=== PATIENT | male | born 1955 | race Caucasian/White ===

== ENCOUNTER 2023-01-24 12:04 | Outpatient (CLI) | payer MEDICARE, BC, SELFPAY ==
--- NOTE | 2023-01-24 11:15 | DI.RAD_ITS ---
Exam(s) XR KNEE RT 3V AP,LAT,MIMI EXAM: XR KNEE RT 3V AP,LAT,MIMI CLINICAL HISTORY: knee pain. TECHNIQUE: 2D digital imaging was performed of the right knee. Three views obtained. AP, lateral an d PA tunnel views were obtained. COMPARISON: None. FINDINGS: BONES: No acute fracture is present. No bony destructive lesion is seen. There is a small enthesophyt e at the superior patella. JOINTS: The knee is normally aligned. No joint effusion is seen. There is mild narrowing of the media l femoral tibial joint. SOFT TISSUE: Normal. IMPRESSION: Mild joint space narrowing. DATA REPOSITORY: RADIATION DOSE DELIVERED:
--- NOTE | 2023-01-24 11:15 | DI.RAD_ITS ---
Exam(s) XR HIP PELVIS ADULT BL EXAM: XR HIP PELVIS ADULT BL CLINICAL HISTORY: hip pain. TECHNIQUE: 2D digital imaging was performed of the pelvis and bilateral hips. Three images were obt ained. AP pelvis and lateral views of both hips were obtained. COMPARISON: No exams were available for comparison FINDINGS: BONES: No acute fracture is present. No bony destructive lesion is seen. JOINTS: No dislocation present. There is mild joint space narrowing and acetabular spurring of the hi ps bilaterally. SOFT TISSUE: Normal. Clips are seen inferior to the pelvis which may represent a prior vasectomy. IMPRESSION: Mild degenerative changes of the hips bilaterally. DATA REPOSITORY: RADIATION DOSE DELIVERED:
--- NOTE | 2023-01-24 11:15 | DI.RAD_ITS ---
Exam(s) XR KNEE LT 3V AP,LAT,MIMI EXAM: XR KNEE LT 3V AP,LAT,MIMI CLINICAL HISTORY: knee pain. TECHNIQUE: 2D digital imaging was performed of the left knee. Three images were obtained. AP, late ral and PA tunnel views were obtained. COMPARISON: CR XR KNEE LEFT 4 OR MORE VIEWS from 09/25/2021 FINDINGS: BONES: No acute fracture is present. No bony destructive lesion is seen. JOINTS: The knee is normally aligned. There is a small joint effusion. Mild periarticular spurring s een at the posterior patella and the lateral femoral tibial joint. There is mild narrowing of the me dial femoral tibial joint. SOFT TISSUE: Normal. IMPRESSION: Osteoarthritis of the knee. DATA REPOSITORY: RADIATION DOSE DELIVERED:
== END 2023-01-24 12:05 | disposition home or self-care (01) ==
LOC: DIORS 12:04
PROVIDERS: Visit Provider Physician Assistant
DX: M17.12 Unilateral primary osteoarthritis, left knee (principal); M17.11 Unilateral primary osteoarthritis, right knee; M70.61 Trochanteric bursitis, right hip; M70.62 Trochanteric bursitis, left hip
CPT/HCPCS: 20610; 73521; 73562; 99203; J1040

== ENCOUNTER → 2023-07-15 08:47 | Outpatient (BNVA) | payer MEDICARE, BC, SELFPAY | PROVIDERS: Visit Provider Student in an Organized Health Care Education/Training Program | DX: M70.61 Trochanteric bursitis, right hip (principal); M70.62 Trochanteric bursitis, left hip; M17.12 Unilateral primary osteoarthritis, left knee | CPT/HCPCS: 20610; J1040 ==

== ENCOUNTER → 2023-11-24 14:17 | Outpatient (BNVA) | payer MEDICARE, BC, SELFPAY | PROVIDERS: Visit Provider Student in an Organized Health Care Education/Training Program | DX: M16.11 Unilateral primary osteoarthritis, right hip (principal) | CPT/HCPCS: 20611; J1040 ==

== ENCOUNTER → 2024-01-16 14:14 | Outpatient (BNVA) | payer MEDICARE, BC, SELFPAY | PROVIDERS: Visit Provider Student in an Organized Health Care Education/Training Program | DX: M16.11 Unilateral primary osteoarthritis, right hip (principal) | CPT/HCPCS: 99213 ==

== ENCOUNTER 2024-03-23 01:43 | Outpatient (CLI) | payer MEDICARE, BC, SELFPAY ==
[2024-03-23 09:20] LABS: HCT 42.6 % (40.0-50.0); HGB 13.8 g/dL (13.5-17.5); MCH 29.9 pg (27.0-33.0); MCHC 32.4 % (32.0-36.0); MCV 92 fL (80-95); MPV 10.7 fL (8.0-11.0); Platelet Count 269 10^3/uL (130-400); RBC 4.62 10^6/uL (4.36-5.78); RDW 12.8 % (11.8-14.1); RDW-SD 42.9 fL; WBC 8.35 10^3/uL (4.4-10.8)
[2024-03-23 09:39] LABS: BUN 15 mg/dL (7-18); CREATININE 0.9 mg/dL (0.70-1.30); Calcium 9.5 mg/dL (8.5-10.1); Chloride 105 mmol/L (98-107); Estimated GFR 92.45 (mL/min/1.73m2); Glucose 119 mg/dL (74-106); Potassium 4.2 mmol/L (3.5-5.1); Sodium 141 mmol/L (136-145)
== END 2024-03-23 01:44 | disposition home or self-care (01) ==
LOC: LBO 01:43
PROVIDERS: Visit Provider Student in an Organized Health Care Education/Training Program
DX: M16.11 Unilateral primary osteoarthritis, right hip (principal); Z01.812 Encounter for preprocedural laboratory examination
CPT/HCPCS: 36415; 80048; 85027; 72170

== ENCOUNTER 2024-03-23 08:28 | Outpatient (CLI) | payer MEDICARE, BC, SELFPAY ==
--- NOTE | 2024-03-23 07:45 | DI.RAD_ITS ---
Exam(s) XR PELVIS AP EXAM: XR PELVIS AP CLINICAL HISTORY: R THR Planning. TECHNIQUE: 2D digital imaging was performed.One images were obtained. COMPARISON: CR XR HIP PELVIS ADULT BL from 01/24/2023 FINDINGS: BONES: No acute fracture is present. No bony destructive lesion is seen. JOINTS: No dislocation present. There is again seen mild narrowing of the hip joints bilaterally. Th e hips are otherwise well maintained. The visualized sacroiliac joints and symphysis pubis are unrem arkable. SOFT TISSUE: Clips are seen inferior to the pelvis which may reflect prior vasectomy. IMPRESSION: Stable mild joint space narrowing of the hips. DATA REPOSITORY: RADIATION DOSE DELIVERED:
== END 2024-03-23 08:29 | disposition home or self-care (01) ==
LOC: DIORS 08:28
PROVIDERS: Visit Provider Physician Assistant
DX: M16.11 Unilateral primary osteoarthritis, right hip (principal); Z01.818 Encounter for other preprocedural examination
CPT/HCPCS: 72170

== ENCOUNTER 2024-04-04 06:21 | Day surgery (SDC) | payer MEDICARE, BC, SELFPAY ==
[2024-04-04] VITALS (8 sets, daily range): BP systolic 92–131; BP diastolic 50–76; PULSE 53–64; RESP 14–23; TEMP 36.3–36.7; O2SAT 94–99; BMI 34.0
[2024-04-04] MEDS: Acetaminophen 500 MG TAB 1000 MG PO (06:18)
[2024-04-04] MEDS: Celecoxib 200 MG CAP 400 MG PO (06:19)
[2024-04-04] MEDS: Lactated Ringers 1,000 ML 80 ML IV (06:28)
--- NOTE | 2024-04-04 06:56 | W.ANESPRE ---
General Info Date of Service Date Performed: 04/04/24 Height: 5 ft 11.5 in Weight: 112.037 kg Body Mass Index (BMI): 34.0 Surgical Procedure: Operation Date: 04/04/24 07:50 Proposed Procedure Side Surgeon p Hip Total Hip Anterior, ACTIS Right Ervin Perez MD Meds Allergies and Home Medications Allergies Allergy/AdvReac Type Severity Reaction Status Date / Time No Known Allergies Allergy Verified 04/04/24 06:02 Home Medication Medication Instructions Recorded albuterol sulfate 90 mcg/actuation 2 puff inhalation Q6H PRN 01/26/23 aerosol inhaler losartan 100 mg tablet 100 mg PO DAILY 01/26/23 metoprolol succinate 50 mg 50 mg PO DAILY 01/26/23 tablet,extended release 24 hr montelukast 10 mg tablet 10 mg PO DAILY 01/26/23 (Singulair) simvastatin 40 mg tablet 40 mg PO DAILY 01/26/23 apixaban 5 mg tablet (Eliquis) 5 mg PO BID 11/24/23 cholecalciferol (vitamin D3) 25 25 mcg PO DAILY 11/24/23 mcg (1,000 unit) capsule potassium, magnesium packet PO 11/24/23 citrate-sodium bicarb 10 mEq oral powder packet (LithoLyte) acetaminophen 500 mg tablet 1,000 mg (2 x 500 mg) PO TID #90 04/04/24 tabs celecoxib 200 mg capsule 200 mg PO BID #60 caps 04/04/24 dexamethasone 4 mg tablet 4 mg PO DAILY #2 tabs 04/04/24 oxycodone 5 mg tablet 5 mg PO Q4H PRN pain #20 tabs 04/04/24 pantoprazole 40 mg tablet,delayed 40 mg PO DAILY #30 tabs 04/04/24 release Current Visit Medications: Current Medications Generic Name Dose Route Start Last Admin Trade Name Freq PRN Reason Stop Dose Admin Acetaminophen 1,000 mg 04/04/24 06:00 04/04/24 06:18 Acetaminophen 500 Mg Tab PO 04/04/24 23:59 1,000 mg PREOP LELO Administration Celecoxib 400 mg 04/04/24 06:00 04/04/24 06:19 Celecoxib 200 Mg Cap PO 04/04/24 23:59 400 mg PREOP LELO Administration Ringer's Solution 1,000 mls @ 80 mls/hr 04/04/24 06:00 04/04/24 06:28 IV 04/04/24 23:59 80 mls/hr INFUSION LELO Administration Cefazolin Sodium/Dextrose 2 gm in 50 mls @ 100 mls/hr 04/04/24 06:00 Ancef Duplex IVPB 04/04/24 23:59 PREOP LELO Tranexamic Acid/Sodium Chloride 1,000 mg in 100 mls @ 600 mls/hr 04/04/24 06:00 IVPB 04/04/24 23:59 PREOP LELO IV Miscellaneous Supplies 1 each 04/04/24 06:00 Iv Access IV 04/04/24 23:59 DIRECTED LELO Sodium Chloride 0 ml 04/04/24 06:00 Normal Saline Flush 10 Ml Syr IV 04/04/24 23:59 PRN PRN Sodium Chloride 0 ml 04/04/24 06:00 Normal Saline 10 Ml Vial IJ 04/04/24 23:59 DIRECTED PRN Sterile Water 0 ml 04/04/24 06:00 Water,Injection,Sterile 10 Ml Vial IJ 04/04/24 23:59 DIRECTED PRN PFSH Active Problems Active Problems: Problem Status Onset Code Osteoarthritis of right hip M16.11 Primary osteoarthritis of left knee M17.12 Primary osteoarthritis of right knee M17.11 Trochanteric bursitis of both hips M70.61, M70.62 Low back pain M54.50 Pain of thigh M79.659 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 Paroxysmal atrial fibrillation I48.0 Family history of prostate cancer Z80.42 Essential (primary) 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 Calculus of kidney N20.0 Hyperlipidemia E78.5 Tobacco Smoking/Tobacco Use Status: Former Tobacco Use Alcohol Alcohol Intake: current Alcohol intake frequency: a few times a week Alcohol type: beer Substance Use Substance use: Never Substance use type: does not use Vital Signs and Lab Results Vital Signs Most Recent Vital Signs in EMR: Most Recent Vital Signs Temp Pulse Resp BP Pulse Ox 36.7 C 59 L 18 131/76 97 04/04/24 06:05 04/04/24 06:05 04/04/24 06:05 04/04/24 06:05 04/04/24 06:05 Lab Results Blood Type / Crossmatch: No Data to Display Complete Blood Count: White Blood Count 8.35 10^3/uL (4.4-10.8) 03/23/24 09:11 Red Blood Count 4.62 10^6/uL (4.36-5.78) 03/23/24 09:11 Hemoglobin 13.8 g/dL (13.5-17.5) 03/23/24 09:11 Hematocrit 42.6 % (40.0-50.0) 03/23/24 09:11 Platelet Count 269 10^3/uL (130-400) 03/23/24 09:11 Complete Metabolic Panel: Sodium 141 mmol/L (136-145) 03/23/24 09:11 Potassium 4.2 mmol/L (3.5-5.1) 03/23/24 09:11 Chloride 105 mmol/L (98-107) 03/23/24 09:11 Carbon Dioxide 26.0 mmol/L (21.0-32.0) 03/23/24 09:11 BUN 15 mg/dL (7-18) 03/23/24 09:11 Creatinine 0.9 mg/dL (0.70-1.30) 03/23/24 09:11 Est GFR (CKD-EPI 2020) 92.45 (mL/min/1.73m2) 03/23/24 09:11 Calcium 9.5 mg/dL (8.5-10.1) 03/23/24 09:11 Glucose 119 mg/dL (74-106) H 03/23/24 09:11 Liver Function Panel: No Data to Display Coagulation Panel: No Data to Display Cardiac Panel: No Data to Display Arterial Blood Gas: No Data to Display Venous Blood Gas: No Data to Display Pancreas Panel: No Data to Display Thyroid Panel: No Data to Display Infectious Disease: No Data to Display Blood Cultures: No Data to Display Toxicology Panel: No Data to Display Anesthesia Assessment and Plan Anesthesia History Personal History: No History of Anesthesia Complications Family History: No Family History of Anesthesia Complications Exercise Tolerance Exercise Tolerance: Metabolic Equivalents>4 Pertinent Negatives Pertinent Negatives: No Symptoms of GERD, No Major Cardiovascular Symptoms or Complaints and No Major Pulmonary Symptoms or Complaints Cardiac & Pulmonary Exam Cardiac Exam: Normal S1/S2 Heart Sounds Pulmonary Exam: Clear Bilateral Breath Sounds Implantable Cardiac Device Does patient have a Pacemaker or an ICD?: No Airway Exam Known Difficult Airway: No Mallampati Class: 2 Mouth Opening: Normal (> 3cm) Thyromental Distance: Greater than 3 cm Facial Hair: Full Dennis Neck Range of Motion: Full ROM Neck Circumference: Thick Teeth Condition: Normal Dentition ASA Classification ASA Score: ASA 2 Emergency Case?: No NPO Status NPO Status: NPO Clears >2 hours, Solids >8 hours Anesthesia Plan Resuscitation Status: Full Code Anesthesia Technique: Spinal Anesthesia Airway Planned: Natural Airway Monitors Used: Standard Monitors
--- NOTE | 2024-04-04 07:11 | W.PM.DSUDISC ---
Date of service: 04/04/24 Time of Service: 07:11 Discharge Plan Disposition Patient Disposition: Home Condition: Good Discharge Details Reason For Visit: R THR Attending Provider: Ervin Perez Primary Care Provider: Jyotsna Greene Home Meds and New Rx's Prescriptions: New celecoxib 200 mg capsule 200 mg PO BID Qty: 60 0RF acetaminophen 500 mg tablet 1,000 mg PO TID Qty: 90 3RF pantoprazole 40 mg tablet,delayed release (DR/EC) 40 mg PO DAILY Qty: 30 0RF dexamethasone 4 mg tablet 4 mg PO DAILY Qty: 2 0RF oxycodone 5 mg tablet 5 mg PO Q4H MDD 6 tabs PRN (Reason: pain) Qty: 20 0RF Continued cholecalciferol (vitamin D3) 25 mcg (1,000 unit) capsule 25 mcg PO DAILY LithoLyte 10 mEq powder in packet PO albuterol sulfate 90 mcg/actuation HFA aerosol inhaler 2 puff inhalation Q6H PRN losartan 100 mg tablet 100 mg PO DAILY metoprolol succinate 50 mg tablet extended release 24 hr 50 mg PO DAILY montelukast [Singulair] 10 mg tablet 10 mg PO DAILY simvastatin 40 mg tablet 40 mg PO DAILY Eliquis 5 mg tablet 5 mg PO BID Discontinued ibuprofen 800 mg tablet 800 mg PO DAILY PRN Discharge Instructions Additional Instructions: Total Hip Discharge Instructions Activity: The most important activity is to walk. You should try to take short walks a few times a day. You have no restrictions on movement or positioning, but do not try to force what you do. You will find some stiffness and weakness with hip flexion (lifting your knee). Do not try to strengthen this too early, continue to practice walking and stairs and this will come. - Outpatient physical therapy can be helpful to help return you to a normal gait and improve your flexibility and strength. This can start around 2 weeks. For some patients, it?s not necessary. Usually this is determined at the time of discharge or at the first post-operative visit. - You should wear the RUSSELL hose on both legs for 2 weeks. Dressing: Keep the surgical dressing in place for at least one week. After the first week it may be removed and replace with light gauze and tape or nothing. It may get wet after 3 days but avoid soaking the dressing. If it gets wet, just lightly pat dry. It is important to always keep some gauze between skin folds, especially when you are sitting. Spend some time with the wound exposed when you are lying flat as the incision does wrinkle onto itself. Medications: - You should take Tylenol and an anti-inflammatory Celebrex as your primary pain control medications. If the Celebrex is too expensive or not covered, please call the office for another alternative (Advil/Ibuprofen or Naproxen/Aleve). - You have been prescribed a stronger pain medication Oxycodone for breakthrough pain, take as needed as prescribed. - You have also been prescribed a stomach acid reduction agent Pantoprozole to help reduce stomach acid and reflux. - You have also been prescribed Decadron to help with post-operative nausea and pain. You will take this for two days starting tomorrow. - You will be taking your apixaban for DVT prevention unless instructed otherwise. - If you have constipation you should take Colace or Miralax (both [id number]). It takes most people 3-4 days to have a bowel movement. Follow-up: 2 weeks If you have any acute concerns or questions, please do not hesitate to contact the office at [phone]. You may contact Dr. Perez with any questions after hours through the hospital at [phone] or on his cell phone at [phone]. Referrals: Ervin Perez MD [ [facility] STAFF PHYSICIAN] - Equipment/Supplies: Walker Activity:: Activity as Tolerated Shower/Bathe:: 72 hours Diet:: As Tolerated Discharge Orders Discharge Orders: Discharge Order (Routine); Ordered 04/04/24 Ordered By: Socrates Cardenas DS: Diagnosis Discharge Diagnosis (1) Osteoarthritis of right hip: Status: Acute
[2024-04-04] MEDS: ceFAZolin 2 GM/50 ML BAG IVPB (07:54)
[2024-04-04] MEDS: TRANEXAMIC ACID/SOD. CHL. 1,000 MG/100 ML BAG 600 MG IVPB (07:57)
--- NOTE | 2024-04-04 09:12 | DI.RAD_ITS ---
Exam(s) XR HIP RT IN OR EXAM: XR HIP RT IN OR CLINICAL HISTORY: Osteoarthritis of right hip. TECHNIQUE: 2D digital imaging was performed. COMPARISON: No exams were available for comparison FINDINGS: Fluoroscopy provided during hip arthroplasty. See procedure report for details. IMPRESSION: Radiation exposure index/cumulative dose: alyssa Avalos= 4.6878 mGy DATA REPOSITORY: RADIATION DOSE DELIVERED:
--- NOTE | 2024-04-04 09:42 | W.PM.OP ---
Date of service: 04/04/24 Time of Service: 08:00 Operative Note Operative Note DATE OF PROCEDURE: 04/04/24 PRE-OP DIAGNOSIS: Right Hip Osteoarthritis POST-OP DIAGNOSIS: same PROCEDURE: Right Anterior Total Hip Arthroplasty with Intraoperative Navigation SURGEON: Ervin Perez LEARNING ENGINEER: Socrates Cardenas ANESTHESIA TYPE: Spinal Refer to Anesthesia Record ESTIMATED BLOOD LOSS: 350 PATHOLOGY: none sent TOURNIQUET TIME: 0 COMPLICATIONS: None Patient was transported to: PACU Patient's condition: stable Implants: 1. Depuy [place] Acetabular Component, 56mm 2. Depuy Acetabular Liner, 38g21gr 3. Depuy Actis Standard Collared Femoral Stem, Size 8 4. Depuy Altrx Ceramic Femoral Head, Size 36+8.5mm Indications: I have seen Francisco Javier in clinic for symptoms of hip arthritis, confirmed with radiographic findings. Francisco Javier has exhausted nonoperative methods and was having significant limitations in daily function and desired better function and less pain. I discussed the technical details of a hip replacement. I explained the risks of the procedure to include, but not limited to, bleeding, infection, pain, stiffness, fracture, damage to nerves and vessels, damage to muscles and tendons, loosening, instability, leg length inequality, need for repeat procedure, blood clot and cardiopulmonary demise. Despite these risks, Francisco Javier elected to proceed. Findings: There was notable chondromalacia about the superior femoral head. Procedure Description: Francisco Javier was greeted in the preoperative holding area where the correct side was identified and marked. The consent was reviewed with the patient and signed. The history and physical was updated. All questions were answered. He was taken back to the operating room. A spinal anesthestic was then administered. The feet were wrapped with cast padding and Coban and then placed into the boot liners and then into the boots. Care was taken to protect the skin and make sure the heels were fully down and the boots were stable. The patient was then positioned onto the HANA table. Both legs were held in a neutral position. SCDs were applied. The patient was then slid down onto a peroneal post. Prophylactic antibiotics in the form of Cefazolin were administered. 1g of Tranxemic Acid was given intravenously within 30 minutes of incision. The right leg was then prepped with Chloraprep and draped in a standard fashion. A second prep with Chloraprep was performed prior to placement of a shower-curtain type drape with Iodine impregnated skin protection. A timeout to confirm correct identity, side and site, procedure, allergies, anesthesia, and medical concerns was performed. An obliquely oriented incision was made starting lateral to the ASIS and running distal over the Tensor Fascia Deb (TFL) muscle belly toward the fibular head, approximately 10cm. The skin and soft tissue was dissected sharply, through Sindhu?s fascia, and to the fascia of the TFL. With the fascia and superior border of the IT band identified, the fascia was incised with a new knife just above any perforators from the IT band. The TFL muscle belly was bluntly dissected away from the fascia and moved laterally. The fat between TFL and rectus was identified to ensure the dissection was not within the TFL. Blunt dissection created space between abductors and the capsule and retractor was placed over the lateral femoral neck. The fibers of the rectus femoris tendon were identified and these were freed from the anterior capsule. A second cobra retractor was placed around the medial femoral neck. The TFL was further retracted laterally to show the deep fascia. Careful dissection through this layer identified three main crossing vessels of the lateral femoral circumflex. These were cauterized in multiple locations and then cut without any noticeable bleeding. The TFL was further released bluntly from the deep fascia to expose anterior hip capsule and fat The Jesus orthopaedic retractor was then placed beneath the TFL and against sartorius and medial soft tissues to protect and retract the soft tissues. A T-capsulotomy was then performed starting at the superior lateral acetabulum and moving distally to the intertrochanteric ridge. These capsular flaps were tagged with a No. 1 Ethibond and elevated from within. The capsular flaps were released to the shoulder of the lateral neck and to the lesser trochanter to give excellent visualization of the proximal femur. A neck osteotomy was performed using an oscillating saw based on preoperative templates. This cut started in the shoulder and of the lateral neck and exited medially. The saw was at all times directed medially to avoid injury to the greater trochanter. Gross traction was applied to the leg and the osteotomy opened. The femoral head was removed with a corkscrew, making sure to protect the TFL on its exit. Traction was released after head removal. This was measured on the back table to determine the starting reamer size. Portions of the rectus obscuring visualization were minimally elevated off the superior acetabulum. An anterior retractor was placed over the anterior wall between capsule and labrum and attached to the Gripper retraction system. The femur was rotated to 90 degrees and medial capsule was fully released until the lesser trochanter was palpable and visible; the femur was returned to 30 degrees. A posterior retractor was placed similarly between capsule and labrum. This provided excellent visualization. The contents of the cotyloid fossa were removed with electrocautery and the labrum was removed with a knife. There is some chondromalacia of the superior acetabulum. Acetabular reaming began with a 52mm reamer. This first reaming was directed anterior to posterior and medial to get down to the true floor. This was inspected and reamed until the true floor was reached. The anterior retractor was then released and entry and exit was provided by traction on the capsular flaps. I then reamed sequentially up to a 56mm reamer where good fit was obtained. The larger reamers were oriented based on anatomical reference of the anterior and lateral brown to ensure proper abduction and anteversion. Positioning and size was confirmed with the fluoroscopy. A 56mm Depuy [place] acetabular component was selected. The acetabulum was reamed around the periphery with the selected acetabular size to prevent a rim fit. The deep tissues were irrigated. The acetabular component was then impacted in a position of about 40-45 degrees of abduction and 15-20 degrees of anteversion, using the patient?s anatomy as the ultimate landmark. Fluoroscopy was used to confirm this. There was excellent nanotechnology engineering technician of the acetabular component and the inserting handle was removed. The acetabular liner, Depuy 21o03hr polyethylene liner, was inserted and lined up with the tines of the acetabular component. There was no soft tissue interposition. The liner was then impacted into position and confirmed to be well-seated. A portion of the gayle-articular cocktail was then injected around the acetabulum into the capsule and periosteum. This cocktail consisted of 123mg of Ropivacaine, 0.25mg of Epinephrine, 0.04mg of Clonidine, and 15mg of Ketorolac, diluted to 50cc. The leg was rotated to 120 degrees. Any remaining medial capsule was released until the lesser trochanter was easily palpable. A retractor was placed medially. The lateral capsule was further released into the shoulder to allow access to the greater trochanter. A Roberts retractor was placed over the greater trochanter which allowed the trochanter to flip in front of the capsule for excellent exposure. The leg was brought down into maximal extension and 20 degrees of adduction while ensuring there was no impingement on the acetabulum. Any remnant capsule within the trochanter was released. Piriformis and obturator externis were identified and protected. There was excellent access to the proximal femur. The lateral neck remnant was removed with a rongeur. A blunt canal probe was used to identify the canal and trajectory for later broaching. A box osteotome initiated the broach course. A small curved rasp and a curved curette were used to work laterally. Broaching then began with a starter Actis broach. This was inserted manually around the trochanter and into the canal before mallet blows. The broach was seated to the neck cut level based on the neck cut and the preoperative template. Sequential broaching was continued with the Flashstartsse pneumatic broaching device until a tight fit was obtained with good rotational control of the femur. A trial standard neck was inserted along with a +8.5 trial head. The leg was brought out of extension and adduction and then reduced with traction and internal rotation. The leg was stable anteriorly in a position of 30 degrees of extension and 90 degrees of external rotation. Fluoroscopy was used to ensure there was no fracture and the stem was seated well. Leg lengths were checked with an AP pelvis and pelvic reference points. 3G Multimedia navigation system was used to confirm appropriate positioning and leg length and offset. Once content with the desired offset and leg lengths, the leg was brought back into extension, external rotation and adduction. The periosteum and surrounding tissue was injected with remaining portion of the gayle-articular cocktail. The proximal femur was irrigated as well as the deep tissues. The Zoomaaluy Revolvis standard collared stem, size 8, was then manually inserted into the proximal femur making sure to control rotation. It was then malleted into position with light blows, giving breaks to allow bone expansion and decrease risk of fracture. The selected Depuy Altrx Ceramic Head, size 36+8.5mm, was then placed onto the clean and dry trunnion and secured with impaction onto the tapered fit. The leg was brought back out of extension and adduction and reduced with traction and internal rotation. Stability was confirmed with no shuck at 90 degrees of external rotation and 30 degrees of extension. No impingement through range of motion arc. Final x-ray images were obtained with fluoroscopy to confirm adequate positioning and no intraoperative fracture. The deep tissues were thoroughly irrigated with Surgiphor, betadine solution. This was allowed to sit in the wound for 3 minutes before being thoroughly irrigated out with normal saline. The capsule was then reapproximated with the previously placed Ethibond sutures. The TFL fascia was finally closed with a No. 2 Stratafix, barbed suture. Deep tissues were then reapproximated with 0 Vicryl and a running 2-0 Vicryl. The skin was closed with a running 4-0 Monocryl in a subcuticular fashion. This was reinforced with skin glue. A Mepilex silver dressing was applied. At the end of the case, all counts were correct. Francisco Javier was transferred to the hospital bed without difficulty and suffering no apparent complication. Francisco Javier has a good prognosis. Physical therapy will start today and without restrictions, weight-bearing as tolerated. Aspirin 81mg BID will be used for DVT prophylaxis.
--- NOTE | 2024-04-04 10:55 | PT.INIE ---
PT Notes Visit Reasons: R THR Physical Therapy Day Surgery Initial Evaluation Date: 04/04/2024 Referring Doctor: RADU [facility] PT Orders: PT CONSULT: S/P Ortho Surgery Precautions: WBAT on the R LE with AD. Patient Profile/Admitting Diagnosis: Francisco Javier is a 68-year-old male with degenerative joint disease of the right hip and is status post right anterior total hip arthroplasty on postoperative day 0 PMHX: Unremarkable Social History/Home Situation: Lives with in a private home with 2 steps to enter with a rail on one side. There are 12 steps to the bedroom of the house with a rail on one side and a wall on the other side. is a retired nurse. Equipment Owned/DME: Worn out FWW (Nurse Darcy provided patient with brand new walker). Subjective: Denied headache, chest pain, and lightheadedness throughout session. 1?2/10 pain in the right hip at rest and with movement. Objective: General Observation: Mepilex Ag over surgical incision. TDS to be legs. Radhika present throughout session. Mental Status: Aand O x 4 Pain: 1?2/10 pain in the right hip at rest and with movement ROM: Right Lower Extremity: Hip flexion WFL. Hip abduction WFL. Knee flexion WFL. Ankle dorsiflexion WFL. Ankle plantarflexion WFL. Left Lower Extremity: Hip flexion WFL. Hip abduction WFL. Knee flexion WFL. Ankle dorsiflexion WFL. Ankle plantarflexion WFL. Strength: Right Lower Extremity: Hip flexors 4-/5. Hip abductors 4-/5. Knee flexors 4-/5. Knee extensors 4-/5. Ankle dorsiflexors 5/5. Ankle plantarflexors 5/5. Left Lower Extremity:Hip flexors 5/5. Hip abductors 5/5. Knee flexors 5/5. Knee extensors 5/5. Ankle dorsiflexors 5/5. Ankle plantarflexors 5/5 Sensation: Intact as to pain and light pressure in bilateral lower extremities Bed Mobility/Transfers: Minimal cueing provided for use of B hands as needed for support, movement sequence, AD management, and posture to reduce fall risk and minimize pain report Supine to sit standby assist Sit to stand contact-guard assist with FWW Stand to sit standby assist with FWW Bed to chair standby assist with FWW Gait: Facilitated safe and correct performance of level surface ambulation covering a distance of 250 feet with step to gait pattern using front wheel walker and standby assist of PT, minimal verbal cueing provided for limb but sequence, AD management, and posture to minimize pain during decrease pain report. Stairs: Guided patient with safe and correct negotiation of 4 x 6 inch steps and 6 x 4 inch steps while holding onto 1 rail and using a single-point cane on the other side requiring standby assist and minimal verbal cueing for limb movement sequence, AD management, and safe weight distribution to minimize pain report and reduce fall risk. Balance: Static Sitting: Normal Dynamic Sitting: Normal Static Standing: Fair Dynamic Standing: Fair Special Tests: Mobility Limitations Standardized [facility] 6 clicks Basic Mobility Inpatient Short Form: Raw Score: 23 CMS Score: 11% deficit Informed Consent/Education: Patient instructed in purpose of PT consult. Packet containing JULIANNA exercise protocol has been given to patient. Education and training on initial set of exercises that can be done at home have been completed with patient. Trained patient with correct performance of exercises below to maximize motor control, joint flexibility, soft tissue extensibility of the R hip musculature to facilitate return to independent functional mobility performance. Access Code: [email or web address] URL: [email or web address] Date: 04/04/2024 Prepared by: Belinda Stewart Exercises - Gluteal Sets - 1 x daily - 7 x weekly - 1 sets - 10 reps - 5 hold - Supine Heel Slide - 1 x daily - 7 x weekly - 1 sets - 10 reps - 5 hold - Supine Ankle Pumps - 1 x daily - 7 x weekly - 1 sets - 10 reps - 5 hold - Seated March - 1 x daily - 7 x weekly - 1 sets - 10 reps - 5 hold - Seated Long Arc Quad - 1 x daily - 7 x weekly - 1 sets - 10 reps - 5 hold Assessment: Patient requires use of a front wheeled walker for all mobility ADL performance to maximize independence and reduce fall risk. Patient presents with clinical signs and symptoms consistent with current/admitting diagnoses that have resulted to mobility limitations, gait instability, generalized weakness, and impairment of motor control as demonstrated by the following impairment level findings: 1. Decreased strength to right hip major muscle groups 2. Impaired standing balance Impairments are contributing to the following functional limitations: 1. Inability to safely ambulate without assistive device 2. Increase completion time for mobility ADL performance 3. Increased fall risk Patient is assessed as a 42517 moderate complexity based on the following: History: 68-year-old male with impairment level findings, functional limitations, and past medical history as indicated above Examination: Demonstrable impairment in strength, balance, and mobility level with underlying impairments and functional limitations as documented above Presentation: Evolving Decision Makin moderate complexity Goals: N/A. PT evaluation and 1-2 treatment sessions only for functional mobility training using recommended AD and for HEP instruction. Plan of Care/Treatment Plan: N/A. PT evaluation and 1-2 treatment session only for functional mobility training using recommended AD and for HEP instruction. DISCHARGE RECOMMENDATIONS: Home when medically cleared by orthopedic surgeon. Recommend outpatient PT services in order to optimize functional mobility outcomes and facilitate return to independent community ambulation without an assistive device. TREATMENT CODE/TIME: 91395 x 20 minutes for 1 unit, 9753 0 x 10 minutes for 1 unit (10:55-11:25). Thank you for the opportunity to participate in the care of this patient. Please sign an return this page within 30 days if you agree with the above POC. Thank you! Physician Signature Date [facility] Thank you for the opportunity to participate in the care of this patient. Belinda Stewart PT, DPT, CLT [facility] [place], [place]
--- NOTE | 2024-04-04 11:55 | W.ANESPOSTOP ---
Postoperative Evaluation Date, Time and Location Date Performed: 04/04/24 Time Performed: 11:55 Patient Location: Day Surgery Unit Vital Signs Most Recent Imported Vital Signs: Most Recent Vital Signs Temp Pulse Resp BP Pulse Ox 36.4 C L 55 L 16 113/54 L 99 04/04/24 10:37 04/04/24 10:37 04/04/24 10:37 04/04/24 10:37 04/04/24 10:37 Pain Score Most Recent Pain Score: Most Recent Pain Score Pain Level 2 04/04/24 10:37 Assessment Mental Status: Awake (Alert & Oriented to Patient Baseline) Airway and Respiratory Function: Patent airway with normal (patient baseline) respiratory exam Cardiovascular Function: Hemodynamically Stable Hydration Status: Adequately Hydrated Nausea & Vomiting: No Nausea or Vomiting Pain: Pain is tolerable per patient Peripheral Nerve Block: Patient did not receive a nerve block
== END 2024-04-04 11:57 | disposition home or self-care (01) ==
PROVIDERS: Visit Provider Student in an Organized Health Care Education/Training Program
PROC: (CPT 27130; principal; 2024-04-04 07:30)
DX: M16.11 Unilateral primary osteoarthritis, right hip (principal); Z79.01 Long term (current) use of anticoagulants; I48.0 Paroxysmal atrial fibrillation; I10 Essential (primary) hypertension; E78.5 Hyperlipidemia, unspecified
CPT/HCPCS: 20985; 27130; C1776; 97162; 97530; 73501; J0690; J2001; J2250; J2371; J2401; J2405; J2704

== ENCOUNTER 2024-04-16 13:25 | Outpatient (CLI) | payer MEDICARE, BC, SELFPAY ==
--- NOTE | 2024-04-16 13:15 | DI.RAD_ITS ---
Exam(s) XR HIP RT COMPLETE AP PELVIS EXAM: XR HIP RT COMPLETE AP PELVIS CLINICAL HISTORY: 1ST POST OP R JULIANNA. TECHNIQUE: 2D digital imaging was performed. Two images were obtained. AP pelvis and lateral right hip views were obtained. COMPARISON: CR XR PELVIS AP from 03/23/2024 XA XR HIP RT IN OR from 04/04/2024 FINDINGS: BONES: There are stable post operative changes of a right total hip replacement present. No fracture or dislocation. JOINTS: The orthopedic hardware is in good position. No evidence of hardware loosening. SOFT TISSUE: There are surgical clips inferior to the pelvis which may reflect prior vasectomy. IMPRESSION: Stable right total hip replacement. DATA REPOSITORY: RADIATION DOSE DELIVERED:
== END 2024-04-16 13:26 | disposition home or self-care (01) ==
LOC: DIORS 13:25
PROVIDERS: Visit Provider Student in an Organized Health Care Education/Training Program
DX: Z96.641 Presence of right artificial hip joint (principal); Z47.1 Aftercare following joint replacement surgery
CPT/HCPCS: 73502

== ENCOUNTER → 2024-05-14 13:34 | Outpatient (BNVA) | payer MEDICARE, BC, SELFPAY | PROVIDERS: Visit Provider Student in an Organized Health Care Education/Training Program | DX: Z47.1 Aftercare following joint replacement surgery (principal); Z96.641 Presence of right artificial hip joint ==

== ENCOUNTER 2025-03-25 14:48 | Outpatient (CLI) | payer MEDICARE, BC, SELFPAY ==
--- NOTE | 2025-03-25 13:20 | DI.RAD_ITS ---
Exam(s) XR HIP RT AP LAT ONLY EXAM: XR HIP RT AP LAT ONLY CLINICAL HISTORY: annual f/u R JULIANNA. TECHNIQUE: 2D digital imaging was performed. Two images were obtained. AP and lateral views were ob tained. COMPARISON: CR XR HIP RT COMPLETE AP PELVIS from 04/16/2024 FINDINGS: BONES: There are stable post operative changes of a right total hip arthroplasty present. No fractur e or dislocation. JOINTS: The orthopedic hardware is in good position. No evidence of hardware loosening. SOFT TISSUE: Normal. IMPRESSION: Stable right total hip arthroplasty. DATA REPOSITORY: RADIATION DOSE DELIVERED:
== END 2025-03-25 14:49 | disposition home or self-care (01) ==
LOC: DIORS 14:48
PROVIDERS: Visit Provider Student in an Organized Health Care Education/Training Program
DX: Z47.1 Aftercare following joint replacement surgery (principal); Z96.641 Presence of right artificial hip joint
CPT/HCPCS: 99213; 73502